=== PATIENT | female | born 1950 | race Caucasian/White ===

== ENCOUNTER 2019-08-13 14:03 | Emergency (ER) | payer MEDICARE, OTHER, SELFPAY ==
[2019-08-13 14:18] VITALS: BP 139/74; PULSE 78; RESP 16; TEMP 36.6; O2SAT 99
--- NOTE | 2019-08-13 14:23 | ED.GENADULT ---
HPI - General Adult General Chief complaint: Skin/Abscess/Foreign Body Stated complaint: outbreak cold sores Source: patient and RN notes reviewed Mode of arrival: ambulatory Limitations: no limitations History of Present Illness HPI narrative: This is a 69 years old female presents to the office for an evaluation of canker sores around her mouth. Onset 1-04/01 week. She has tried otc cream/ointment which she believes has made it worse. She has been stressing out at home due to family related matter; which she thinks, it contributes to her illness. She is otherwise feeling well. Related Data Home Medications Medication Instructions Recorded Confirmed alendronate 70 mg PO WEEKLY 02/10/19 08/13/19 cyclosporine [Restasis] 1 drp DAILY 02/10/19 08/13/19 escitalopram oxalate 20 mg DAILY 02/10/19 08/13/19 aspirin 81 mg PO DAILY 08/13/19 08/13/19 tacrolimus [Protopic] 1 applic TOPICAL BID 08/13/19 08/13/19 Allergies Allergy/AdvReac Type Severity Reaction Status Date / Time Sulfa (Sulfonamide Allergy Severe RASH Verified 08/13/19 14:25 Antibiotics) Review of Systems Review of Systems: Narrative: CONSTITUTIONAL: Denies fever or feeling ill ENT: Denies sore inside her mouth, sore throat or difficulty swallowing CARDIOVASCULAR: Denies chest pain RESPIRATORY: Denies cough GASTROINTESTINAL: Denies nausea, vomiting SKIN: Reports painful sores around the mouth NEUROLOGIC: Denies lightheaded PMFSH Past Medical History Medical History Arthritis Asthma Breast cancer Depression Fracture of left wrist in 1998 Osteoporosis Surgical History Surgical History H/O tubal ligation History of mastectomy left breast, 1993 Family History Family History Mother Heart disease Depression COPD (chronic obstructive pulmonary disease) Sibling Depression Father Alzheimer disease Sibling Crohn disease Social History Social History Smoking status: Never smoker Gender identity (if verbalized by the patient): Female Comments At time of signature, I agree with nursing past medical, surgical, social and family history. There is no relevant family history pertinent to the presenting complaint. Exam Narrative: Exam Narrative: GENERAL: This is a well-nourished, well-developed patient, in no apparent distress. THROAT: Mucous membranes moist, posterior pharynx clear. Outter lips lining noted scatter macular erythema lesions especially in her left corner of the lips. CARDIOVASCULAR: Regular rate and rhythm without murmurs, gallops, or rubs. RESPIRATORY: Clear to auscultation. Breath sounds equal bilaterally. No wheezes, rales, or rhonchi. GASTROINTESTINAL: Abdomen soft, non-tender, nondistended. Bowel sounds are active. No guarding. NEURO: awake, alert, and oriented to person, place and time. There were no obvious focal neurologic abnormalities. Steady gait [place] Coma Scale Eye Opening: Spontaneous 4 [place] Coma Scale Motor: Obeys Commands 6 [place] Coma Scale Verbal: Oriented 5 Course Vital Signs Vital signs: Vital Signs Temperature 97.8 F 08/13/19 14:18 Pulse Rate 78 08/13/19 14:18 Respiratory Rate 16 08/13/19 14:18 Blood Pressure 139/74 08/13/19 14:18 Pulse Oximetry 99 08/13/19 14:18 Temperature 97.8 F 08/13/19 14:18 Pulse Rate 78 08/13/19 14:18 Respiratory Rate 16 08/13/19 14:18 Blood Pressure 139/74 08/13/19 14:18 Pulse Oximetry 99 08/13/19 14:18 Medical Decision Making MDM Narrative Medical decision making narrative: Elevated BP noted: I recommend the patient call the primary care provider this week to arrange follow-up for hypertension within 1-2week. Discharge instructions reviewed with patient, as well as provided in writing per nursing st
== END 2019-08-13 14:50 | disposition home or self-care (01) ==
PROVIDERS: Emergency Provider Nurse Practitioner; PCP Family Medicine Adolescent Medicine
DX: K12.0 Recurrent oral aphthae (principal); M19.90 Unspecified osteoarthritis, unspecified site; J45.909 Unspecified asthma, uncomplicated; Z85.3 Personal history of malignant neoplasm of breast; M81.0 Age-related osteoporosis without current pathological fracture; F32.9 Major depressive disorder, single episode, unspecified; Z79.82 Long term (current) use of aspirin; Z90.12 Acquired absence of left breast and nipple
CPT/HCPCS: 99213; G0463

== ENCOUNTER 2020-02-12 15:32 | Outpatient (CLI) | payer MEDICARE, OTHER, SELFPAY ==
--- NOTE | ~2020-02-12 | MM_ITS ---
EXAMINATION: MM screening arlene BI w bertha HISTORY: Screening mammogram TECHNIQUE: Craniocaudal and mediolateral oblique 3-D tomosynthesis images were obtained and synthetic 2-D images were generated. CAD analysis was submitted and interpreted. COMPARISON: No prior mammogram is available for comparison at this institution. BREAST PARENCHYMAL COMPOSITION: There are scattered areas of fibroglandular density. FINDINGS: Status post left partial mastectomy for left breast cancer. There is no evidence of suspici ous mass, calcification, or architectural distortion to suggest malignancy in either breast. There zavala s been no suspicious interval change. IMPRESSION: 1. No mammographic evidence of malignancy. 2. Recommend routine screening mammography in one year. BI-RADS Category 2: Benign finding(s). Reviewed, dictated and finalized at location A. MIC PLATER
== END 2020-02-12 15:33 | disposition home or self-care (01) ==
LOC: ANHIMG 15:34
PROVIDERS: PCP Family Medicine Adolescent Medicine; Visit Provider Nurse Practitioner
DX: Z12.31 Encounter for screening mammogram for malignant neoplasm of breast (principal)
CPT/HCPCS: 77063; 77067

== ENCOUNTER 2020-10-21 11:00 | Outpatient (RCR) | payer MEDICARE, OTHER, SELFPAY ==
--- NOTE | 2020-09-16 11:46 | PTOPEVAL ---
INITIAL PHYSICAL THERAPY EVALUATION and PLAN OF CARE Thank you for referring Krista Trivedi [facility].? Krista is scheduled to be seen for physical therapy? 1x/week for 5 weeks. Please review, sign, date and return this plan of care MC. I agree with and certify that the following plan of care is medically necessary. Referring Physician Date Admitting Provider: Attending Provider: Janet Vann, PA Referring Provider: *PT Outpatient Evaluation Start: 09/16/20 10:19 Freq: Status: Active Protocol: Document 09/16/20 10:17 WILLARD (Rec: 09/16/20 11:38 WILLARD [email or web address]) Therapy Assessment Status Assessment Status Assessment Status Evaluation Outpatient Past Medical History Past Medical History Source of Past Medical History Recalled from Previous Visit, Confirmed with Patient/Family Neurological History Hx Neurological Disorders No Significant History Cardiovascular History Hx Cardiac Disorders No Significant History Respiratory History Hx Respiratory Disorders No Significant History Gastrointestinal History Hx Gastrointestinal Disorders No Significant History Genitourinary History Hx Genitourinary Disorders No Significant History Musculoskeletal History Hx Fractures Yes: left wrist 1998 Hx Joint Replacement Yes: right hip 2017 Hx Orthopedic Surgery Yes: left wrist repair Hx Osteoporosis Yes Hematological History Hx Hematological Disorders No Significant History Endocrine History Hx Endocrine Disorders No Significant History HEENT History Hx Other HEENT Disorders Yes: dry eye and macular pucker Integumentary History Hx Eczema Yes: ectopic dermatitis Reproductive History Hx Post Menopausal Yes Hx Tubal Ligation Yes: 1981 Hx Other Reproductive Disorders Yes: breast cancer with lumpectomy - left 1993 Psychosocial History Hx Depression Yes Pain History History of Any Previous or Ongoing No Significant History Instance of Pain Anesthesia History Hx Anesthesia Reactions No Significant History Other History Hx Cancer Yes: breast Hx Chemotherapy Yes Hx Radiation Therapy Yes Evaluation Information Problem Diagnosis stress incontinence or urine, fecal smearing Onset last year Subjective Information More difficulty with getting Query Text:As Reported By Patient/ to the bathroom in regards to Family the urine than leakage. Fecal smearing - with vegetarian diet noticed more bulkier
--- NOTE | 2020-10-21 11:58 | PTOPEVAL ---
PHYSICAL THERAPY DISCHARGE SUMMARY Thank you for referring Krista Trivedi to [facility] [place][Note 2[place]? Krista has been seen in PT x 4 visits. She has met all goals set and is ready for d/c from PT to HEP. I agree with Krista's discharge from PT to HEP. Referring Physician Date Admitting Provider: Attending Provider: Janet Vann, PA Referring Provider: Therapy Assessment Status Assessment Status Assessment Status Discharge Evaluation Information Problem Diagnosis stress incontinence or urine, fecal smearing Subjective Information Krista reports that she is Query Text:As Reported By Patient/ doing well. Came to PT today Family without a pad on. Not getting up at night, able to delay getting out of bed in the mornings to perform Bible readings. No fecal smearing anymore. Pain Assessment Timing of Pain Assessment Timing of Pain Assessment Assessment Self Report Self Report Pain Level 0 Pelvic Health Evaluation Pelvic Floor Assessment Sustained Levator Ani Strength 4/5 Quick Levator Ani Contraction in 15 13 Seconds Rehab Teaching Rehab Teaching Teaching Topic Rehab Teaching Topic Components Anatomy/Physiology,Exercise, Home Program,Positioning As Pertains To Body Mechanics,Precautions, Safety,Technique Recipient Patient Learning Preferences Audio,Demonstration,Discussion ,One-on-One Instruction,Visual Barriers to Learning None Readiness to Learn Excellent Response Returns Demonstration, Verbalizes Understanding Method Demonstration,Discussion, Handout,One-On-One Instruction ,Written Instruction Additional Rehab Teaching Comments upgraded [facility] provided-added resistive exercises PT Clinical Summary Clinical Summary Protocol: PTEVCODE PT Clinical Summary Incontinence Impact Questionnaire - 0% Urogenital Distress Inventory - 0% Krista has met all goals set. She is doing very well - not having any incontinence, able to use urge and stress incontinence strategies effectively, and now able to leave the home without we
== END 2020-12-01 13:06 | disposition home or self-care (01) ==
LOC: ANHPT 11:00
PROVIDERS: PCP Physician Assistant; Visit Provider Physician Assistant
DX: N39.3 Stress incontinence (female) (male) (principal); R15.1 Fecal smearing
CPT/HCPCS: 97110; 97161

== ENCOUNTER 2022-12-16 12:40 | Emergency (ER) | payer MEDICARE, SELFPAY ==
--- NOTE | ~2022-12-16 | CT_ITS ---
EXAMINATION: CT brain wo con DATE: 12/16/2022 13:42 INDICATION: Fall with head injury TECHNIQUE: Computed tomography (CT) of the head was performed without intravenous contrast. Sagittal and coronal reconstructions were performed. The mA was adjusted according to patient size. Iterative reconstruction technique was employed. The dose-length product was 605.33 mGy-cm. COMPARISON: head CT dated 11/30/18 FINDINGS: Large midline anterior frontal scalp hematoma at the forehead. No underlying calvarial fracture. Ther e is minimal scattered white matter hypoattenuation consistent with chronic small vessel ischemic dis ease. No acute intracranial hemorrhage, acute infarction or abnormal extra axial fluid collection. Ve ntricles are normal and symmetric. No mass/mass effect. The visualized portions of the orbits, parana leona sinuses and mastoid air cells are normal. IMPRESSION: 1. No fracture or acute intracranial process. 2. Minimal scattered white matter hypoattenuation consistent with chronic small vessel ischemic disea se. Reviewed, dictated and finalized at location A. IMPRESSION: 1. No fracture or acute intracranial process. 2. Minimal scattered white matter hypoattenuation consistent with chronic small vessel ischemic disease.
--- NOTE | ~2022-12-16 | CT_ITS ---
EXAMINATION: CT cervical spine wo con DATE: 12/16/2022 13:43 INDICATION: Neck pain after trauma TECHNIQUE: Computed tomography (CT) of the cervical spine was performed without intravenous contrast. The dose-length product was 227 mGy-cm. Automated exposure control and iterative reconstruction tech Hoverink were employed. COMPARISON: CT dated 11/30/2018 FINDINGS: There is reversal of cervical lordosis. There is disc narrowing and endplate degenerative c hange at all cervical spine levels. There is uncinate and facet hypertrophy throughout the cervical s pine. Odontoid process is normal. Craniovertebral junction is normal. No evidence for perched facet. There is degenerative anterolisthesis at C7-T1. There are groundglass opacities in the lung apices, n onspecific. No significant paraspinal soft tissue abnormality. IMPRESSION: 1. No acute abnormality of the cervical spine. 2: Severe cervical spondylosis. Reviewed, dictated and finalized at location L.
--- NOTE | ~2022-12-16 | XR_ITS ---
XR wrist RT min 3V, XR hand RT min 3V 12/16/2022 13:49 Indication: Right wrist pain after fall Procedure: 4 views right wrist and 3 views right hand Comparison: No prior studies for comparison. Findings: There is anatomic alignment. No fracture, subluxation or dislocation. No significant soft t issue abnormality. No foreign bodies. Impression: 1: No acute fracture. Reviewed, dictated and finalized at location L. Impression: 1: No acute fracture. Impression: 1: No acute fracture.
--- NOTE | ~2022-12-16 | CT_ITS ---
EXAMINATION: CT chest abdomen pelvis wo con DATE: 12/16/2022 13:43 INDICATION: Right chest pain post fall TECHNIQUE: Computed tomography (CT) of the chest, abdomen, and pelvis was performed without intraveno us contrast. Automated exposure control and iterative reconstruction technique were employed. The dos e-length product was 672.82 mGy-cm. COMPARISON: None FINDINGS: CHEST CT: Postoperative change of prior left mastectomy with asymmetric decreased size of some architectural di stortion. Subpleural likely radiation fibrosis along the anterior left upper lobe with additional dis coid atelectasis/scarring in the lingula. Associated volume loss in left hemithorax with elevation of the left hemidiaphragm. Additional mild discoid atelectasis/scarring at the posterior sulcus of the right lower lobe. No pneumonia, pulmonary edema, pleural effusion or pneumothorax. Heart size is norm al. No pericardial effusion. Ectatic ascending thoracic aorta measuring up to 4.0 cm in maximal diame ter. No pathologically enlarged thoracic lymphadenopathy. And severe right glenohumeral osteoarthriti s. Age-indeterminate nondisplaced lateral right third rib fracture. Surgical clip at the left axilla likely related to prior axillary lymph node dissection. ABDOMEN/PELVIS CT: 1.5 cm cyst in the left hepatic lobe. Gallbladder, spleen, pancreas, bilateral adrenal glands and lef t kidney are normal. 3.4 cm right renal cyst. 1 cm rim calcified splenic artery aneurysm near the spl enic hilum. Bowels are unremarkable with no obstruction. 1.7 cm likely degenerated uterine fibroid wi th coarse calcifications at the uterine fundus. Bladder and bilateral adnexa are unremarkable. Small amount of likely physiologic free fluid in the pelvis. No pathologically enlarged abdominal or pelvic lymphadenopathy. Right total hip arthroplasty. Severe disc height loss with mild degenerative endpla te changes at L5-S1. Mild spondylosis more cephalad lumbar spine. IMPRESSION: 1. Age-indeterminate nondisplaced lateral right third rib fracture. No pneumothorax or other acute ca rdiopulmonary disease. 2. No acute intra-abdominal/pelvic process. Reviewed, dictated and finalized at location A. IMPRESSION: 1. Age-indeterminate nondisplaced lateral right third rib fracture. No pneumoth orax or other acute cardiopulmonary disease. 2. No acute intra-abdominal/pelvic process.
[2022-12-16 12:41] VITALS: BP 174/84; PULSE 78; RESP 16; TEMP 36.2; O2SAT 100
--- NOTE | 2022-12-16 13:03 | ED.HEATRA ---
HPI - Head Injury General Chief complaint: Head Injury Stated complaint: FALL,TRIP ON RUG, HEAD INJURY Time Seen by Provider: 12/16/22 13:03 History of Present Illness HPI Narrative: Patient is a 72-year-old female with history of osteoporosis, osteopenia here after a fall. 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 She denies any loss of consciousness. She notes an associated headache at this time. No blood thinner use, does use a baby ASA daily. She did show Ali notes that she believes she had her right lower chest and her right hand on the ground as well. She notes pain in her chest is worse with taking a deep breath and any pressure on the chest wall. No prodromal chest pain or shortness of breath, believes she just tripped after losing her balance. She does note that she had a fall up the stairs yesterday as wel, her orthopedic surgeon has vocalized that she is suffering from unsteadiness on her feet in the recent years. Related Data Home Medications Medication Instructions Recorded Confirmed escitalopram oxalate 20 mg tablet 20 mg DAILY 02/10/19 11/23/22 aspirin 81 mg tablet,delayed 81 mg PO DAILY 08/13/19 11/23/22 release tacrolimus 0.1 % topical ointment 1 applic topical BID 08/13/19 11/23/22 (Protopic) calcium carbonate-vitamin D3 500 cap PO 05/20/22 11/23/22 mg (1,250 mg)-50 unit capsule cetirizine 10 mg capsule (Zyrtec) 10 mg PO DAILY PRN 05/20/22 11/23/22 cholecalciferol (vitamin D3) 125 125 mcg PO DAILY 05/20/22 11/23/22 mcg (5,000 unit) capsule omega-3 fatty acids 500 mg capsule 500 mg PO BID 05/20/22 11/23/22 mecobalamin (vitamin B12) 1,000 1,000 mcg PO DAILY 08/25/22 11/23/22 mcg chewable tablet tacrolimus 0.03 % topical ointment 1 applic topical BID 08/25/22 11/23/22 Allergies Allergy/AdvReac Type Severity Reaction Status Date / Time Sulfa (Sulfonamide Allergy Severe RASH Verified 12/16/22 13:00 Antibiotics) Review of Systems Review of Systems: CONSTITUTIONAL: Denies fever, chills, or sweats. EYES: Denies visual changes, redness, or discharge. ENT: Denies rhinorrhea, congestion, sore throat, or otalgia. Head injury CARDIOVASCULAR: chest pain, no palpitations, or edema. RESPIRATORY: Denies cough or dyspnea. GASTROINTESTINAL: Denies abdominal pain, nausea, vomiting, or diarrhea. GENITOURINARY: Denies dysuria or hematuria. SKIN: wound to upper lip from yesterday, bruising on face and hand from today. MUSCULOSKELETAL: Denies back pain, joint pain, or myalgia. NEUROLOGIC: headache, no numbness or weakness. [facility] Past Medical History Medical History (Updated 12/16/22 @ 15:51 by Lucinda Jovel MD) Arthritis Asthma BMI 29.0-29.9,adult Breast cancer Closed left clavicular fracture Depression Fracture of left wrist in 1998 Osteoarthritis of right knee valgus Osteoporosis Surgical History Surgical History H/O tubal ligation History of mastectomy left breast, 1993 History of right hip replacement August 2017 Family History Family History Mother Heart disease Depression COPD (chronic obstructive pulmonary disease) Sibling Depression Father Alzheimer disease Sibling Crohn disease Social History Social History Smoking status: Never smoker Alcohol intake: current Substance use: never Lack of Transportation: No Lack of Food: Never True Current Housing: I Have Housing Concerned About Future Housing: No Difficulty Paying Gas/Electric Bills: No Difficulty Paying for Meds: No Currently Unemployed: No Education: Master's Degree or Higher Difficulty w/ Childcare or Family Care: No Living arrangements: with family Occupation/Education: retired Gender identity (if verbalized by the patient): Female
[2022-12-16 15:33] VITALS: BP 180/77; PULSE 69; RESP 16; O2SAT 100
[2022-12-16 16:52] VITALS: BP 175/76; PULSE 84; RESP 18; O2SAT 100
== END 2022-12-16 16:55 | disposition home or self-care (01) ==
PROVIDERS: Emergency Provider Student in an Organized Health Care Education/Training Program; PCP Nurse Practitioner Family
DX: S09.90XA Unspecified injury of head, initial encounter (principal); S60.221A Contusion of right hand, initial encounter; S22.31XA Fracture of one rib, right side, initial encounter for closed fracture; M81.0 Age-related osteoporosis without current pathological fracture; M85.80 Other specified disorders of bone density and structure, unspecified site; M17.11 Unilateral primary osteoarthritis, right knee; F32.A Depression, unspecified; Z96.641 Presence of right artificial hip joint; Z85.3 Personal history of malignant neoplasm of breast; Z90.12 Acquired absence of left breast and nipple; Z79.82 Long term (current) use of aspirin; M47.812 Spondylosis without myelopathy or radiculopathy, cervical region; W18.09XA Striking against other object with subsequent fall, initial encounter
CPT/HCPCS: 70450; 71250; 72125; 73110; 73130; 74176; 99284

== ENCOUNTER 2023-10-25 11:10 | Outpatient (CLI) | payer MEDICARE, SELFPAY ==
[2023-10-25 11:56] LABS: Alanine Aminotransferase 18 U/L (6-35); Albumin Level 4.6 g/dL (3.5-5.1); Alkaline Phosphatase 73 U/L (38-126); Anion Gap 9 mmol/L (4-12); Aspartate Amino Transferase 27 U/L (14-36); Bilirubin,Total 0.7 mg/dL (0.2-1.3); Blood Urea Nitrogen 14 mg/dL (7-17); Calcium 9.6 mg/dL (8.4-10.2); Carbon Dioxide 27 mmol/L (22-30); Chloride 102 mmol/L (98-107); Estimated Glomerular Filt Rate > 60; Glucose 94 mg/dL (65-110); Phosphorus 4.2 mg/dL (2.5-4.5); Potassium 4.3 mmol/L (3.4-5.0); Sodium 138 mmol/L (137-145)
[2023-10-25 12:11] LABS: Parathyroid Intact 56.3 pg/mL (7.5-53.5)
[2023-10-25 12:28] LABS: Free T4 Free Thyroxine 1.14 ng/mL (0.78-2.19); Vitamin D 25 Hydroxy 50.6 ng/mL
[2023-10-26 17:23] LABS: Creatinine, Random Urine 96 mg/dL (20-275); Total Protein/Creatinine Ratio 104 mg/g creat (24-184)
[2023-10-27 08:28] LABS: Albumin 4.1 g/dL (3.8-4.8); Alpha 1 Globulin 0.3 g/dL (0.2-0.3); Alpha 2 Globulin 0.7 g/dL (0.5-0.9); Beta 1 Globulin 0.5 g/dL (0.4-0.6); Gamma Globulin 1.1 g/dL (0.8-1.7)
[2023-10-28 09:52] LABS: Total Prot/Creat ratio mg/mg 0.104 (0.024-0.184)
[2023-10-30 19:04] LABS: Immunofixation, Serum Normal pattern.
== END 2023-10-25 11:11 | disposition home or self-care (01) ==
PROVIDERS: PCP Nurse Practitioner Family; Visit Provider Internal Medicine Endocrinology, Diabetes & Metabolism
DX: M81.0 Age-related osteoporosis without current pathological fracture (principal); R79.89 Other specified abnormal findings of blood chemistry; E78.5 Hyperlipidemia, unspecified; I10 Essential (primary) hypertension
CPT/HCPCS: 36415; 80053; 80069; 82306; 82570; 83970; 84155; 84156; 84165; 84166; 84439; 84443; 86334

== ENCOUNTER 2023-10-28 12:15 | Outpatient (CLI) | payer MEDICARE, SELFPAY ==
[2023-10-28 13:27] LABS: Creatinine Urine 33.3 mg/dL
[2023-10-28 18:04] LABS: Creatinine 24 Hour Urine 0.9 gm/24 (0.8-1.8); Total Volume 24 Hour Urine 3000 ml
[2023-11-07 10:59] LABS: Total Volume 3000 mL
== END 2023-10-28 12:16 | disposition home or self-care (01) ==
PROVIDERS: PCP Nurse Practitioner Family; Visit Provider Internal Medicine Endocrinology, Diabetes & Metabolism
DX: M81.0 Age-related osteoporosis without current pathological fracture (principal); R79.89 Other specified abnormal findings of blood chemistry
CPT/HCPCS: 81050; 82340; 82530; 82570